=== PATIENT | male | born 1985 | race African-American/Black ===

== ENCOUNTER 2018-05-27 18:06 | Emergency (ER) | payer SELFPAY ==
[~2018-05-27] VITALS: Ht 167.6 cm; Wt 70.5 kg
[2018-05-27 18:17] VITALS: Ht 167.6 cm; Wt 70.5 kg
[2018-05-27] MEDS ORDERED: ANUSOL-HC 2.5%30 GM RC (18:55)
[2018-05-27 19:24] VITALS: BP 128/64
== END 2018-05-27 19:26 | disposition home or self-care (01) ==
LOC: D.ER 18:06
DX: K64.9 Unspecified hemorrhoids (principal)

== ENCOUNTER 2018-08-18 15:19 | Emergency (ER) | payer MEDICAID ==
[~2018-08-18] VITALS: Ht 167.6 cm; Wt 63.6 kg
[~2018-08-18 15:19] MED LIST: ANUSOL-HC 2.5%30 GM RC
[2018-08-18 15:21] VITALS: Ht 167.6 cm; Wt 63.6 kg
[2018-08-18] MEDS ORDERED: NAPROSYN500 MG PO (16:31)
[2018-08-18 18:00] VITALS: BP 110/69
== END 2018-08-18 17:53 | disposition home or self-care (01) ==
LOC: D.ER 15:19
DX: R10.30 Lower abdominal pain, unspecified (principal); M54.2 Cervicalgia; R51 Headache; M25.562 Pain in left knee; V43.62XA Car passenger injured in collision with other type car in traffic accident, initial encounter; Y93.89 Activity, other specified; Y92.410 Unspecified street and highway as the place of occurrence of the external cause

== ENCOUNTER 2018-08-21 13:42 | Emergency (ER) | payer MEDICAID ==
[~2018-08-21] VITALS: Ht 167.6 cm; Wt 65.9 kg
[~2018-08-21 13:42] MED LIST changes: +NAPROSYN500 MG PO
[2018-08-21 13:55] VITALS: Ht 167.6 cm; Wt 65.9 kg
[2018-08-21 14:40] LABS: BASOPHILS 2.4 % (0-2); EOSINOPHILS 4.2 % (0-7); HEMATOCRIT 43.1 % (42.0-54.0); HEMOGLOBIN 14.7 g/dL (13.5-17.5); IMMATURE GRANULOCYTES 0.3 % (0-5); LYMPHOCYTES 35.3 % (15-50); MCH 32.5 pg (26.0-34.0); MCHC 34.1 g/dL (31.0-37.0); MCV 95.1 fL (80.0-100.0); MEAN PLATELET VOLUME 9.2 fL (7.4-10.4); MONOCYTES 16.9 % (2-11); NEUTROPHILS 40.9 % (40-80); PLATELET COUNT 280 10x3/uL (130-400); RBC 4.53 10x6/uL (4.20-6.10); RDW 13.4 % (11.5-14.5); WBC 3.4 10x3/uL (4.8-10.8)
[2018-08-21 15:08] LABS: APPEARANCE CLEAR (CLEAR); BILIRUBIN NEGATIVE (NEGATIVE); COLOR YELLOW (YELLOW); GLUCOSE NEGATIVE (NEGATIVE); KETONE NEGATIVE (NEGATIVE); NITRITE NEGATIVE (NEGATIVE); PROTEIN NEGATIVE (NEGATIVE); SPECIFIC GRAVITY 1.015 (1.005-1.020); UROBILINOGEN NORMAL (NORMAL)
[2018-08-21 15:08] LABS: ALBUMIN 3.4 g/dL (3.4-5.0); ALKALINE PHOSPHATASE 57 U/L (46-116); ALT (SGPT) 26 U/L (10-68); AMYLASE - SERUM 99 U/L (25-115); BILIRUBIN - TOTAL 0.47 mg/dL (0.2-1.3); CALC OSMOLALITY 277 mosm/kg (275-300); CALCIUM 8.7 mg/dL (8.5-10.1); CARBON DIOXIDE 32.3 mmol/L (21.0-32.0); CHLORIDE - SERUM 105 mmol/L (98-107); GLUCOSE 95 mg/dL (74-106); LIPASE 199 U/L (73-393); POTASSIUM - SERUM 4.6 mmol/L (3.5-5.1); PROTEIN - SERUM 6.8 g/dL (6.4-8.2); SODIUM 140 mmol/L (136-145); UREA NITROGEN 10 mg/dL (7-18); eGFR NON AFRICAN AMERICAN > 90 mL/min (90-120)
[2018-08-21] MEDS ORDERED: LOMOTIL 2.5-0.1 EAC1 PO (18:34)
[2018-08-21] MEDS ORDERED: FLAGYL500 MG PO (18:34)
[2018-08-21] MEDS ORDERED: CIPRO500 MG PO (18:34)
[2018-08-21 18:50] VITALS: BP 106/68
== END 2018-08-21 18:46 | disposition home or self-care (01) ==
LOC: D.ER 13:42
PROVIDERS: Family Medicine
DX: R10.32 Left lower quadrant pain (principal); R19.7 Diarrhea, unspecified